=== PATIENT | male | born 1960 | race Caucasian/White ===

== ENCOUNTER → 2024-06-28 | Outpatient (CLI) | payer BC, SELFPAY ==
--- NOTE | 2024-06-28 14:46 | XR_ITS ---
Examination: Right elbow 3 views Technique: Elbow AP, oblique, lateral 3 views Exam date and time: June 28, 2024 1519 hours INDICATIONS: Injury to the elbow February 2024 with persistent elbow pain. FINDINGS: Mild elbow osteoarthritis No acute fracture 11 mm posterior bony olecranon spur IMPRESSION: 11 mm posterior bony olecranon spur.
== END | disposition home or self-care (01) ==
PROVIDERS: PCP Family Medicine; Referring Provider Nurse Practitioner Gerontology; Visit Provider Nurse Practitioner Gerontology
DX: M25.521 Pain in right elbow (principal); S59.901S Unspecified injury of right elbow, sequela; X58.XXXS Exposure to other specified factors, sequela
CPT/HCPCS: 73080

== ENCOUNTER → 2024-07-02 | Outpatient (CLI) | payer BC, SELFPAY ==
[2024-07-02 15:50] LABS: Collection Type, Urine Clean Catch; Squamous Epithelial Cell,Urine 0 /hpf (0-5)
[2024-07-02 16:20] LABS: Basophils % (Auto) 0 % (0-2.5); Eosinophils # (Auto) 0.1 Thou/mm3 (0.0-0.5); Eosinophils % (Auto) 1 % (0-10); Hemoglobin 13.3 g/dL (13.5-16.0); Immature Granulocytes % (Auto) 0 % (0-0); Immature Granulocytes Auto 0.02 Thou/mm3 (0.00-0.00); Lymphocytes # (Auto) 2.9 Thou/mm3 (1.0-4.8); Lymphocytes % (Auto) 32 % (10-50); Mean Corpuscular HGB Conc 32.4 g/dl (31.0-37.0); Mean Corpuscular Hemoglobin 27.4 pg (25.0-35.0); Mean Corpuscular Volume 84 fL (80-100); Monocytes # (Auto) 0.7 Thou/mm3 (0.0-0.8); Monocytes % (Auto) 7 % (0-12); Neutrophils # (Auto) 5.3 Thou/mm3 (1.8-7.7); Neutrophils % (Auto) 59 % (37-80); Nucleated Red Blood Cell % 0 /100 WBC (0); Platelet Count 137 Thou/mm3 (140-440); RDW Standard Deviation 39.2 fL (35.1-43.9); Red Blood Count 4.86 Miln/mm3 (4.50-5.90)
[2024-07-02 16:24] LABS: Bilirubin,Urine Negative (Negative); Blood,Urine Negative (Negative); Clarity,Urine Clear (Clear/Hazy); Color,Urine Yellow (Lt Yel-Yel); Culture Indicated,Urine Not Indicated; Glucose, Urine Trace (Negative); Ketones,Urine 1+ (Negative); Leukocyte Esterase,Urine Negative (Negative); Nitrite,Urine Negative (Negative); Protein,Urine 1+ (Neg - Trace); RBC,Urine 4 /hpf (0-3); Specific Gravity,Urine 1.026 (1.001-1.035); Urobilinogen,Urine Negative mg/dL (0.0-1.0); WBC,Urine 1 /hpf (0-5)
[2024-07-02 16:32] LABS: Alanine Aminotransferase 21 U/L (10-49); Albumin, Serum 4.3 gm/dL (3.4-4.8); Albumin/Globulin Ratio 1.7 (1.2-2.2); Alkaline Phosphatase 124 U/L (46-116); Anion Gap 9 (7-16); Aspartate Amino Transferase 19 U/L (0-34); BUN/Creatinine Ratio 21 Ratio (12-20); Bilirubin,Total 0.8 mg/dL (0.3-1.2); Blood Urea Nitrogen 17 mg/dL (9-23); Calcium 9.1 mg/dL (8.3-10.6); Calcium (Corrected) 9.1 mg/dL (8.5-10.1); Carbon Dioxide 25.2 mMol/L (20.0-31.0); Cardiac Risk Estimate 2.8 RATIO (4.0-6.7); Chloride 102 mMol/L (98-107); Cholesterol 181 mg/dL (132-200); Creatinine (Component) 0.8 mg/dL (0.6-1.3); Globulin 2.5 gm/dL (2.3-3.5); Glucose 163 mg/dL (74-106); HDL Cholesterol 65 mg/dL (40-60); LDL Cholesterol,Calculated 105 mg/dL (0-130); Osmolality,Calculated 277 (275-295); Sodium 136 mMol/L (136-145); Thyroid Stimulating Hormone 1.07 uIU/mL (0.55-4.78); Total Protein 6.8 gm/dL (5.7-8.2); Triglycerides 56 mg/dL (30-150); Vitamin D 25 Hydroxy Total 20.7 ng/mL (7.3-40.2); eGFR > 60 See Note
[2024-07-02 16:37] LABS: Glucose Estimated Average 303 mg/dL (80-131); Hemoglobin A1C 12.2 % Hgb (4.8-6.0)
[2024-07-02 18:32] LABS: Creatinine MALB Rnd Ur 109 mg/dL (30-125); Microalbumin Creat Ratio 81 mg/gCrea (<30); Microalbumin, Random Urine 88 mg/L (0-300)
== END | disposition home or self-care (01) ==
LOC: COPL 14:55
PROVIDERS: PCP Family Medicine; Referring Provider Registered Nurse; Visit Provider Registered Nurse
DX: Z00.00 Encounter for general adult medical examination without abnormal findings (principal)
CPT/HCPCS: 36415; 80053; 80061; 81001; 82043; 82306; 82570; 83036; 84443; 85025

== ENCOUNTER 2025-05-29 23:41 | Emergency (ER) | payer BC, SELFPAY ==
[2025-05-29 23:43] VITALS: BMI 34.0
[2025-05-30 00:03] VITALS: BP 187/96; PULSE 93; RESP 20; TEMP 36.4; O2SAT 97
--- NOTE | 2025-05-30 00:24 | XR_ITS ---
Examination: CT abdomen with intravenous contrast CT pelvis with intravenous contrast 2-D coronal reconstructions 2-D sagittal reconstructions Date and time of exam: May 30, 2025, 0201 hours, comparison May 05, 2023 INDICATIONS: Abdominal pain constipation tonight., History malignant neoplasm left kidney CTDI: vol (mGy) 13.2 DLP: (mGycm) 852 Technique: Multiple axial sections of the abdomen and pelvis have been obtained. 64 slice high-resolution scanner used. 3 mm axial sections have been obtained, post intravenous injection 60 cc [id number] 2-D sagittal, coronal reconstructions obtained. Low dose protocols were performed. One or more of the following dose reduction techniques were used; automated exposure control, adjustment of the mA and/or KV according to patient size, use of iterative reconstruction technique. Findings: No visualized liver or splenic lesion No gallstones No pancreatic or adrenal mass Partial left nephrectomy No solid enhancing renal mass lesion No abdominal or pelvic lymphadenopathy Normal appendix No bowel obstruction Normal seminal vesicles No prostatomegaly No bladder mass or bladder calculi Moderate osteopenia with mild lumbar spondylosis IMPRESSION: No acute process in the abdomen or pelvis
--- NOTE | 2025-05-30 00:27 | PD.EDABDPN ---
ED Abdominal Pain RME/HPI General Chief Complaint: Abdominal Pain Stated complaint: CONSTIPATED,ABD PAIN Time seen by provider: 05/30/25 00:24 Arrival date/time: 05/29/25 23:41 64M with history of DM presents to ED with days of ab pain and constipation. Patient denies N/V and dysuria. Limitations: no limitations Related Data Home Medications ?Medication ?Instructions ?Recorded ?Confirmed insulin glargine 100 unit/mL (3 24 unit subcut HS 02/12/20 09/23/23 mL) subcutaneous pen (Lantus Solostar U-100 Insulin) insulin aspart U-100 100 unit/mL See Rx Instructions .Route .COMPLEX 04/21/23 09/23/23 (3 mL) subcutaneous pen (Novolog FlexPen U-100 Insulin aspart) semaglutide 0.25 mg or 0.5 mg (2 0.25 mg subcut QWEEK 04/21/23 09/23/23 mg/3 mL) subcutaneous pen injector (Ozempic) tamsulosin 0.4 mg capsule 0.4 mg PO QHS 05/24/23 09/23/23 Allergies Allergy/AdvReac Type Severity Reaction Status Date / Time No Known Allergies Allergy Verified 05/29/25 23:42 Review of Systems Review of Systems Systems Reviewed: All systems reviewed, normal except as documented Gastrointestinal Gastrointestinal: Reports as per HPI, Reports abdominal pain and Reports constipation Past Medical History Past Medical History NEUROLOGIC: Negative Seizures CARDIAC: Negative Congestive Heart Failure RESPIRATORY: Negative Chronic Obstructive Pulmonary Disease (COPD) GASTROINTESTINAL: Negative Gastrointestinal Disorders GENITOURINARY: Positive Renal Disease (LEFT KIDNEY CA) and Benign Prostatic Hyperplasia MUSCULOSKELETAL: Positive Musculoskeletal Disorders (MENISCUS TEAR) ENT: Positive Cataracts (BILATERAL) ENDOCRINE: Negative Diabetes Mellitus Type 1 or Diabetes Mellitus Type 2 OTHER HISTORY: Positive Cancer (RGHT KIDNEY CA); Negative Blood Transfusions or Anesthesia Reactions Surgical History SURGICAL: Positive Nephrectomy (LEFT) Social History SMOKING STATUS: Never smoker ED Exam General Limitations: Present no limitations General appearance: Present alert and in no apparent distress Head Head exam: Present atraumatic Neck Neck exam: Present normal inspection, full ROM and trachea midline Chest Chest inspection: Present normal inspection and symmetric chest wall rise Abdominal Exam Abdominal exam: Present soft and tenderness Abdominal tenderness: Present mild Neurological Exam Neurological exam: Present alert and oriented X3 Psychiatric Psychiatric exam: Present normal affect and normal mood Skin Skin exam: Present warm, dry, intact and normal color Course Quality Measures none Orders Category Date Time Status Blood glucose [Bedside Blood Glucose] NOW Care 05/30/25 03:[address] Screening NOW Care 05/30/25 00:24 Active Insert IV NOW Care 05/30/25 00:[address] abdomen pelvis w con Stat Exams 05/30/25 00:24 Taken CBC Stat Lab 05/30/25 00:31 Completed CMP [Comprehensive Metabolic Panel] Stat Lab 05/30/25 00:31 Completed Drug Screen,Urine Stat Lab 05/30/25 00:44 Completed Lactate (Lactic Acid) Stat Lab 05/30/25 00:31 Completed Urinalysis, C/S if Indicated Stat Lab 05/30/25 00:44 Completed Magnesium Citrate Liqd [Citrate of Magnesia Liqd] Med 05/30/25 03:03 Discontinued 300 ml PO X1 ONE Sodium Chloride 0.9% 1000 ml [Ns] 1,000 ml Med 05/30/25 00:54 Discontinued IV 999 mls/hr Sodium Chloride 0.9% 1000 ml [Ns] 1,000 ml Med 05/30/25 03:05 Active IV 999 mls/hr Vital Signs Vital signs: Vital Signs Temperature 97.5 F 05/30/25 00:03 Pulse Rate 93 05/30/25 00:03 Respiratory Rate 20 05/30/25 00:03 Blood Pressure 187/96 H 05/30/25 00:03 Pulse Oximetry (%) 97 05/30/25 00:03 Oxygen Delivery Method Room Air 05/30/25 00:03 O2 at 97% on RA and WNLs Abdominal Pain MDM MDM Narrative MDM Narrative:: 64M with history of DM presents to ED with days of ab pain and constipation. Patient denies N/V and dysuria. Physical exam reveals some gen ab tenderness. Patient is afebrile, calm, and alert. CT unremarkable. No leukocytosis. CMP unremarkable except for elevated BS, which went down after meds. UA only glucose. Lactate was initially elevated at 4.3, but patient had a large BM and immediately felt better. Given significant improvement in pain and no abnormal findings in CT, no second lactate was drawn. Meds and teacher counselor given. Patient data External records reviewed:: [facility] previous records Clinical information provided by:: patient Social determinants that could affect healthcare access:: none Patient has the following chronic illnesses:: DM How is presenting disease/condition affected by chronic disease/condition?: exacerbated by Evaluation data The following diagnostics were reviewed and interpreted by me:: lab results and radiology exam(s) Lab and/or radiology exams considered but not ordered:: ordered Interpretation Summary: above Medications / Prescriptions Medications or Prescriptions considered but not ordered:: ordered Medication administrations:: Medication Administration History Sodium Chloride (Ns) 1,000 mls @ 999 mls/hr IV .Q1H1M ONE Stop: 05/30/25 04:05 Last Admin: 05/30/25 03:25 Dose: 999 mls/hr Documented By: BR Discontinued Medications Sodium Chloride (Ns) 1,000 mls @ 999 mls/hr IV .Q1H1M ONE Stop: 05/30/25 01:54 Last Infusion: 05/30/25 02:21 Dose: Infused Documented By: Admin: 05/30/25 01:00 Dose: 999 mls/hr Documented By: BD Magnesium Citrate (Magnesium Citrate 300 Ml Btl) 300 ml PO X1 ONE Stop: 05/30/25 03:04 Last Admin: 05/30/25 03:28 Dose: 300 ml Documented By: BEN above Consultations Consultation(s) initiated? (list below): No Diagnosis Differential diagnosis abdominal pain: abdominal pain, acute appendicitis, calculus of kidney, constipation, diverticulitis, gastroenteritis, pancreatitis, small bowel obstruction and other (hyperglycemia and constipation) Most likely diagnosis given after review of the tests above:: hyperglycemia and constipation Admission Indicated Admission indicated?: not indicated Admission Request Was there a request for admission?: No Disposition Plan Disposition Plan: Discharge Discharge Attestation Discharge Attestation: The patient and all family members were given an opportunity to ask questions and understood the discharge instructions. Discharge instructions specifically effects, indications for sooner follow up or return to the emergency department, and the expected course of current diagnosis. Patient condition: Stable Discharge Plan Plan Patient Disposition: HOME (Self Care) Discharge Disposition comment: Stable Prescriptions/Referrals Prescriptions/Med Rec: No Action tamsulosin 0.4 mg capsule 0.4 mg PO QHS insulin glargine [Lantus Solostar U-100 Insulin] 100 unit/mL (3 mL) Insulin Pen 24 unit SUBCUT HS insulin aspart U-100 [Novolog FlexPen U-100 Insulin] 100 unit/mL (3 mL) insulin pen See Rx Instructions .ROUTE .COMPLEX Patient Comments: INJECT 30 UNITS SUBCUTANEOUS EVERY DAY Rx Instructions: Take dose based on sugar level checks Ozempic 0.25 mg or 0.5 mg (2 mg/3 mL) pen injector 0.25 mg SUBCUT QWEEK Patient Comments: INJECT 0.5MG SUBCUTANEOUSLY WEEKLY DIRECTED 28 Referrals: Merlin rGiffin MD [Primary Care Provider, Family Practice] - In 1 week Problem List Clinical Impression: Hyperglycemia, Constipation Patient/Caregiver Discharge Instructions Education Materials: High Blood Sugar (Hyperglycemia), ED Constipation (Adult) Additional Instructions: Please follow-up with PCP within 24-48 hours and return immediately if symptoms worsen. Print Language: Macedonian Stand Alone Forms: Patient Portal Info Letter ADRIANE/ISABELLE Supervising Physician ADRIANE/ISABELLE Supervising Physician: Dr. Burch
[2025-05-30 00:48] LABS: Basophils # (Auto) 0.0 Thou/mm3 (0.0-0.2); Basophils % (Auto) 0 % (0-2.5); Eosinophils # (Auto) 0.2 Thou/mm3 (0.0-0.5); Eosinophils % (Auto) 2 % (0-10); Hematocrit 44.6 % (41.0-53.0); Hemoglobin 14.5 g/dL (13.5-16.0); Immature Granulocytes Auto 0.01 Thou/mm3 (0.00-0.00); Lymphocytes # (Auto) 2.8 Thou/mm3 (1.0-4.8); Lymphocytes % (Auto) 34 % (10-50); Mean Corpuscular HGB Conc 32.5 g/dl (31.0-37.0); Mean Corpuscular Hemoglobin 27.7 pg (25.0-35.0); Mean Corpuscular Volume 85 fL (80-100); Monocytes # (Auto) 0.6 Thou/mm3 (0.0-0.8); Monocytes % (Auto) 7 % (0-12); Neutrophils # (Auto) 4.6 Thou/mm3 (1.8-7.7); Neutrophils % (Auto) 56 % (37-80); Nucleated Red Blood Cell # 0.00 Thou/mm3 (0.00-0.00); Nucleated Red Blood Cell % 0 /100 WBC (0); Platelet Count 144 Thou/mm3 (140-440); RDW Standard Deviation 39.2 fL (35.1-43.9); Red Blood Count 5.23 Miln/mm3 (4.50-5.90); White Blood Count 8.2 Thou/mm3 (3.8-10.6)
[2025-05-30 00:50] LABS: Lactate (Lactic Acid) 4.3 mMol/L (0.4-2.0)
[2025-05-30 00:54] LABS: Collection Type, Urine Clean Catch
[2025-05-30] MEDS: SODIUM CHLORIDE 0.9% 1000 ML 1,000 ML 999 ML IV ×2 (01:00→03:25)
[2025-05-30 01:06] LABS: Amphetamine/Methamp Scrn,U Negative (Negative); Barbiturate Screen,Urine Negative (Negative); Benzodiazepines Screen,Urine Negative (Negative); Benzoylecgonine Screen, Ur Negative (Negative); Fentanyl Screen,Urine Negative (Negative); Opiate Screen,Urine Negative (Negative); THC Screen,Urine Negative (Negative)
[2025-05-30 01:09] LABS: Alanine Aminotransferase 24 U/L (10-49); Albumin, Serum 4.7 gm/dL (3.4-4.8); Albumin/Globulin Ratio 1.4 (1.2-2.2); Alkaline Phosphatase 228 U/L (46-116); Anion Gap 11 (7-16); Aspartate Amino Transferase 22 U/L (0-34); BUN/Creatinine Ratio 22 Ratio (12-20); Bilirubin,Total 0.5 mg/dL (0.3-1.2); Blood Urea Nitrogen 26 mg/dL (9-23); Calcium 9.7 mg/dL (8.3-10.6); Calcium (Corrected) 9.7 mg/dL (8.5-10.1); Carbon Dioxide 25.1 mMol/L (20.0-31.0); Chloride 98 mMol/L (98-107); Creatinine (Component) 1.2 mg/dL (0.6-1.3); Estimated Creatinine Clearance 74.0 mL/min (>60); Globulin 3.3 gm/dL (2.3-3.5); Osmolality,Calculated 293 (275-295); Potassium 4.1 mMol/L (3.4-5.1); Sodium 134 mMol/L (136-145); Total Protein 8.0 gm/dL (5.7-8.2); eGFR > 60 See Note
[2025-05-30 01:09] LABS: Bilirubin,Urine Negative (Negative); Blood,Urine Negative (Negative); Clarity,Urine Clear (Clear/Hazy); Color,Urine Lt-Yellow (Lt Yel-Yel); Culture Indicated,Urine Not Indicated; Glucose, Urine 4+ (Negative); Ketones,Urine Trace (Negative); Leukocyte Esterase,Urine Negative (Negative); Nitrite,Urine Negative (Negative); PH,Urine 6.5 (5.0-7.0); Protein,Urine Negative (Neg - Trace); RBC,Urine 3 /hpf (0-3); Specific Gravity,Urine 1.034 (1.001-1.035); Squamous Epithelial Cell,Urine < 1 /hpf (0-5); Urobilinogen,Urine Negative mg/dL (0.0-1.0); WBC,Urine 2 /hpf (0-5)
[2025-05-30 01:15] LABS: Glucose 471 mg/dL (74-106)
[2025-05-30 02:45] VITALS: BP 173/89; PULSE 79; RESP 20; O2SAT 99
--- NOTE | 2025-05-30 02:59 | PRELIM_ITS ---
CT scan of the abdomen and pelvis with intravenous contrast (axial sections with sagittal and coronal reformats) May 30, 2025 0201 hours Clinical History: Abdominal pain and constipation. Comparison: None available at the time of this report. Findings: The lung bases are clear. The liver, gallbladder, pancreas, spleen, and adrenals are unremarkable. Left renal cortical scarring. No hydronephrosis. No evidence of bowel obstruction. The appendix is within normal limits. There is no mesenteric or retroperitoneal adenopathy. The urinary bladder is unremarkable. There is no free fluid or free air. Degenerative changes of the imaged portions of the spine. Chronic multilevel disc disease. No acute fractures. Impression: No evidence of acute intra-abdominal or pelvic pathology. Report Electronically Signed By: Jase Guaman 05/30/2025 2:59:35 AM [EST]
[2025-05-30] MEDS: MAGNESIUM CITRATE 300 ML BTL PO (03:28)
[2025-05-30 03:29] VITALS: BP 155/84; RESP 16
[2025-05-30 03:39] LABS: Reflex Lactate? Y
== END 2025-05-30 04:16 | disposition home or self-care (01) ==
PROVIDERS: Physician Assistant; Emergency Provider Emergency Medicine; PCP Family Medicine
DX: K59.00 Constipation, unspecified (principal); E11.65 Type 2 diabetes mellitus with hyperglycemia
CPT/HCPCS: 36415; 74177; 80053; 80307; 81001; 83605; 85025; 96360; 99283; A4649; J7030; Q9967; A9270